=== PATIENT | male | born 1940 | race Caucasian/White ===

== ENCOUNTER 2019-01-21 10:15 | Outpatient (CLI) | payer MEDICARE ==
--- NOTE | 2019-01-21 12:48 | ULT ---
ULTRASOUND ABDOMEN COMPLETE: DATE: 01-21-19 HISTORY: 78-year-old male with ICD-10:R10.9 - unspecified abdominal pain FINDINGS: Liver: Diffusely very coarse and heterogeneous echogenicity and echotexture. Multiple hepatic cysts. The largest in the left lobe is 2.2 x 2.6 x 2.3 cm. Largest in the right lobe is 2 x 1.6 x 2 cm. Gallbladder: Normal wall thickness. No gallstones, sludge, or pericholecystic fluid identified. Common duct: 7 mm Spleen: No splenomegaly. Pancreas: Nonspecific sonographic appearance. Kidneys: No hydronephrosis. 2.5 x 2 x 2 cm round lower pole parenchymal cyst in right kidney. In the left kidney, punctate echogenic foci are visualized, which may or may not represent renal calculi. Abdominal aorta: Mild atherosclerosis. No aneurysm. Inferior vena cava: Poorly visualized. IMPRESSION: 1. Very heterogeneous and coarse echotexture of liver: evidence for nonspecific diffuse, infiltrative hepatocellular disease. Consider further evaluation with multiphase CT of abdomen with and without c ontrast (liver protocol). 2. Multiple hepatic cysts. 3. No sonographic evidence of cholelithiasis or acute cholecystitis. Code T JN R POS: CET
== END 2019-01-21 10:16 | disposition home or self-care (01) ==
LOC: BICULT 10:15
PROVIDERS: ATTEND Family Medicine
DX: R10.9 Unspecified abdominal pain (principal); K76.89 Other specified diseases of liver
CPT/HCPCS: 76700

== ENCOUNTER 2021-12-21 10:31 | Outpatient (CLI) | payer MEDICARE ==
[2021-12-21 11:50] LABS: #Basophils 0.1 10x3/uL (0.0-0.2); #Eosinphils 0.1 10x3/uL (0.0-0.5); #Monocytes 0.5 10x3/uL (0.0-1.1); #Neutrophils 4.9 10x3/uL (1.5-8.4); %Basophils 0.7 % (0.0-2.0); %Eosinophils 1.5 % (0.0-6.0); %Lymphocytes 17.5 % (18.0-47.0); %Monocytes 7.4 % (0.0-10.0); %Neutrophils 72.5 % (40.0-75.0); Hemoglobin 14.7 g/dL (13.5-17.5); Mean Corpuscular HGB CONC 31.8 g/dL (32.0-36.0); Mean Corpuscular Hemoglobin 28.7 pg (27.0-33.0); Mean Corpuscular Volume 90.2 fl (81.2-95.1); Platelet Count 122 10x3/uL (150-450); RBC Distribution Width 18.6 % (11.5-14.5); Red Blood Cell (RBC) Count 5.12 10x6/uL (4.32-5.72); White Blood Cell (WBC) Count 6.8 10x3/uL (3.5-10.5)
[2021-12-21 12:03] LABS: INR-International Normal Ratio 1.1; PTT 28.5 sec (22.0-33.0)
[2021-12-21 12:08] LABS: Anion Gap 16 mmol/L (10-20); BUN (Urea Nitrogen) 30 mg/dL (8.4-25.7); Calc. Creatinine Clearance 0 mL/min (70-130); Calcium 9.1 mg/dL (7.8-10.44); Carbon Dioxide 30 mmol/L (23-31); Chloride 105 mmol/L (98-107); Estimated GFR 58; Glucose 110 mg/dL (83-110); Potassium 4.5 mmol/L (3.5-5.1); Sodium 146 mmol/L (136-145)
== END 2021-12-21 10:32 | disposition home or self-care (01) ==
LOC: LABBT 10:31
PROVIDERS: ATTEND Psychiatry & Neurology Neurology
DX: Z01.818 Encounter for other preprocedural examination (principal); I48.0 Paroxysmal atrial fibrillation; Z20.822 Contact with and (suspected) exposure to COVID-19
CPT/HCPCS: 80048; 85025; 85610; 85730; 87811; 93005; 93010

== ENCOUNTER 2021-12-26 08:51 | Day surgery (SDC) | payer MEDICARE ==
[2021-12-21 13:54] VITALS: BMI 22.7
[2021-12-26] MEDS ORDERED: PROPOFOL 20 ML ONE (13:03)
[2021-12-26] MEDS ORDERED: Ketamine 50 MG/ML (10ML VIAL) ONE (13:03)
== END 2021-12-26 15:41 | disposition home or self-care (01) ==
LOC: SDC 08:51
PROVIDERS: ATTEND Internal Medicine Cardiovascular Disease
PROC: B246ZZ4 Ultrasonography of Right and Left Heart, Transesophageal (ICD-10-PCS; principal; 2021-12-26)
PROC: 5A2204Z Restoration of Cardiac Rhythm, Single (ICD-10-PCS; 2021-12-26)
DX: I48.0 Paroxysmal atrial fibrillation (principal); I42.9 Cardiomyopathy, unspecified; I08.3 Combined rheumatic disorders of mitral, aortic and tricuspid valves; I11.9 Hypertensive heart disease without heart failure; I70.0 Atherosclerosis of aorta; C61 Malignant neoplasm of prostate; Z79.01 Long term (current) use of anticoagulants; Z79.899 Other long term (current) drug therapy; Z86.711 Personal history of pulmonary embolism
CPT/HCPCS: 92960; 93005; 93010; 93312; J2704

== ENCOUNTER 2023-05-31 09:59 | Inpatient (IN) | payer OTHER ==
[2023-05-31 10:39] LABS: #Monocytes 0.8 thou/uL (0.11-0.59); #Neutrophils 13.7 thou/uL (1.40-6.50); %Basophils 0.1 % (0.0-1.0); %Lymphocytes 3.7 % (21.0-51.0); %Monocytes 5.3 % (0.0-10.0); %Neutrophils 90.5 % (42.0-75.0); Hematocrit 36.3 % (42.0-52.0); Hemoglobin 12.1 g/dL (14.0-18.0); Mean Corpuscular HGB CONC 33.3 g/dL (32.0-36.0); Mean Corpuscular Hemoglobin 31.4 pg (27.0-31.0); Mean Corpuscular Volume 94.3 fl (78.0-98.0); Mean Platelet Volume 11.9 fL (7.4-10.4); Platelet Count 157 10x3/uL (130-400); Red Blood Cell (RBC) Count 3.85 mill/uL (4.70-6.10); White Blood Cell (WBC) Count 15.2 10x3/uL (4.8-10.8)
[2023-05-31 11:03] LABS: ALT (SGPT) 11 U/L (8-55); AST (SGOT) 17 U/L (5-34); Albumin 3.4 g/dL (3.4-4.8); Alkaline Phosphatase 69 U/L (40-110); Anion Gap 15 mmol/L (10-20); BUN (Urea Nitrogen) 31 mg/dL (8.4-25.7); Bilirubin, Total 0.6 mg/dL (0.2-1.2); CK (CPK) 299 U/L (30-200); Calc. Creatinine Clearance 0 mL/min (70-130); Calcium 8.9 mg/dL (7.8-10.44); Carbon Dioxide 21 mmol/L (23-31); Chloride 106 mmol/L (98-107); Estimated GFR 42; Globulin 2.8 g/dL (2.4-3.5); Glucose 117 mg/dL (83-110); Potassium 3.7 mmol/L (3.5-5.1); Protein, Total 6.2 g/dL (5.8-8.1); Sodium 138 mmol/L (136-145)
[2023-05-31 11:17] LABS: Troponin I 0.025 ng/mL (< 0.028)
[2023-05-31 13:41] LABS: Bacteria/HPF None Seen HPF (None Seen); Bilirubin Negative (Negative); Blood, Urine 1+ (Negative); CAUTI Indications for Culture Dysuria,urgency,freq; Calcium Oxalate Crystals Rare HPF (None Seen); Clarity Clear (Clear); Glucose, Urine (Dipstick) Normal (Negative); Ketone, Urine Negative (Negative); Leukocyte Negative Leu/uL (Negative); Mucous/LPF 1+ LPF (<2+); Nitrite Negative (Negative); Protein, Urine (Dipstick) 30 mg/dL (Neg-Trace); Specific Gravity, Urine 1.006 (1.002-1.036); Squamous Epithelial 0-3 HPF (0-3); Urobilinogen Normal mg/dL (Less than 2); WBC/HPF 0-3 HPF (0-3); pH, Urine 5.5 (5.0-9.0)
[2023-05-31 13:43] LABS: Urine Culture Reflex No No
[2023-05-31 15:25] LABS: SARS-CoV-2 NAA Rapid Test Not Detected (NotDetected)
[2023-05-31] MEDS ORDERED: Acetaminophen 325 MG TAB PO PRN (18:23)
[2023-05-31] MEDS ORDERED: Bisacodyl 5 MG TAB PO PRN (18:23)
[2023-05-31] MEDS: Dronedarone HCl 400 MG TAB PO SCH (18:34)
[2023-05-31] MEDS: Sodium Chloride 0.9% 1,000 ML IV SCH (18:34)
[2023-05-31 19:02] LABS: Campy jejuni + coli by PCR POSITIVE (Negative); STEC Shiga Toxin 1+2 Negative (Negative); Salmonella spp. by PCR Negative (Negative); Shigella spp + EIEC by PCR Negative (Negative)
[2023-05-31] MEDS: Apixaban 2.5 MG TAB PO SCH (22:12)
[2023-06-01] MEDS: Apixaban 2.5 MG TAB PO SCH (08:14)
[2023-06-01] MEDS: Sodium Chloride 0.9% 1,000 ML IV SCH (08:14)
[2023-06-01] MEDS: Vit A,C & E/Lutein/Minerals Tablet PO SCH (08:14)
[2023-06-01] MEDS: Tamsulosin HCl 0.4 MG CAP PO SCH (08:14)
[2023-06-01] MEDS: Dronedarone HCl 400 MG TAB PO SCH ×2 (08:14→16:16)
[2023-06-01 09:56] LABS: Hematocrit 31.9 % (42.0-52.0); Hemoglobin 10.4 g/dL (14.0-18.0); Manual Diff?? YES; Mean Corpuscular HGB CONC 32.6 g/dL (32.0-36.0); Mean Corpuscular Volume 94.9 fl (78.0-98.0); Mean Platelet Volume 11.9 fL (7.4-10.4); Platelet Count 142 10x3/uL (130-400); RBC Distribution Width 14.1 % (11.5-14.5); Red Blood Cell (RBC) Count 3.36 mill/uL (4.70-6.10); White Blood Cell (WBC) Count 7.7 10x3/uL (4.8-10.8)
[2023-06-01 10:17] LABS: Delete Auto Diff?? YES
[2023-06-01 10:23] LABS: Anion Gap 12 mmol/L (10-20); BUN (Urea Nitrogen) 27 mg/dL (8.4-25.7); CK (CPK) 574 U/L (30-200); Calc. Creatinine Clearance 46 mL/min (70-130); Calcium 8.3 mg/dL (7.8-10.44); Carbon Dioxide 22 mmol/L (23-31); Chloride 108 mmol/L (98-107); Estimated GFR 62; Glucose 115 mg/dL (83-110); Potassium 3.7 mmol/L (3.5-5.1); Sodium 138 mmol/L (136-145)
[2023-06-01 11:07] LABS: Band 16 % (5-11); Burr Cells SLIGHT = 2-5 cells HPF (0-1); CellaVision Operator ID LAB.NR; Eosinophils 2 % (0-10); Hypochromia SLIGHT = 6-15 cells HPF (0-5); Lymphocytes 12 % (21-51); Monocytes 7 % (0-10); Neutrophil 63 % (42-75); Platelet Adequacy Comment Platelets Normal; Polychromasia SLIGHT = 2-3 cells HPF (0-2); Spherocytes SLIGHT = 1-5 cells HPF (None Seen); Total Cell Count 100; Vacuoles SLIGHT
[2023-06-01] MEDS: Azithromycin 250 MG TAB PO SCH (11:26)
[2023-06-01] MEDS ORDERED: NIFEdipine XL 30 MG ER.TAB PO PRN (11:50)
[2023-06-01] MEDS: Apixaban 5 MG TAB PO SCH (21:25)
[2023-06-02] MEDS: Sodium Chloride 0.9% 1,000 ML IV SCH ×2 (00:31→09:40)
[2023-06-02 00:37] VITALS: BMI 23.5
[2023-06-02 05:11] LABS: #Eosinphils 0.3 thou/uL (0.0-0.7); #Monocytes 1.1 thou/uL (0.11-0.59); #Neutrophils 3.8 thou/uL (1.40-6.50); %Basophils 0.6 % (0.0-1.0); %Eosinophils 3.7 % (0.0-10.0); %Lymphocytes 28.5 % (21.0-51.0); %Monocytes 14.8 % (0.0-10.0); Hematocrit 31.2 % (42.0-52.0); Hemoglobin 10.3 g/dL (14.0-18.0); Mean Corpuscular Hemoglobin 31.1 pg (27.0-31.0); Mean Corpuscular Volume 94.3 fl (78.0-98.0); Mean Platelet Volume 12.6 fL (7.4-10.4); Platelet Count 145 10x3/uL (130-400); RBC Distribution Width 14.2 % (11.5-14.5); Red Blood Cell (RBC) Count 3.31 mill/uL (4.70-6.10); White Blood Cell (WBC) Count 7.2 10x3/uL (4.8-10.8)
[2023-06-02 05:46] LABS: Anion Gap 11 mmol/L (10-20); BUN (Urea Nitrogen) 25 mg/dL (8.4-25.7); CK (CPK) 356 U/L (30-200); Calc. Creatinine Clearance 44 mL/min (70-130); Calcium 8.4 mg/dL (7.8-10.44); Carbon Dioxide 21 mmol/L (23-31); Chloride 113 mmol/L (98-107); Estimated GFR 60; Glucose 85 mg/dL (83-110); Potassium 3.7 mmol/L (3.5-5.1); Sodium 141 mmol/L (136-145)
[2023-06-02] MEDS: Tamsulosin HCl 0.4 MG CAP PO SCH (09:40)
[2023-06-02] MEDS: Vit A,C & E/Lutein/Minerals Tablet PO SCH (09:40)
[2023-06-02] MEDS: Apixaban 5 MG TAB PO SCH (09:40)
[2023-06-02] MEDS: Dronedarone HCl 400 MG TAB PO SCH (09:40)
[2023-06-02] MEDS: Azithromycin 250 MG TAB PO SCH (12:50)
[2023-06-02 13:47] VITALS: BP 151/96; TEMP 98
== END 2023-06-02 15:20 | disposition home or self-care (01) | DRG 372 ==
LOC: ERS 09:59 → 2NO 15:47 → INTOOBSV 15:47 → OBSVTOIN 06-02 14:50
PROVIDERS: ADMIT Internal Medicine; ATTEND Internal Medicine
DX: A04.5 Campylobacter enteritis (principal); M62.82 Rhabdomyolysis; N17.9 Acute kidney failure, unspecified; E86.0 Dehydration; E78.5 Hyperlipidemia, unspecified; I48.91 Unspecified atrial fibrillation; N40.0 Benign prostatic hyperplasia without lower urinary tract symptoms; N18.2 Chronic kidney disease, stage 2 (mild); I12.9 Hypertensive chronic kidney disease with stage 1 through stage 4 chronic kidney disease, or unspecified chronic kidney disease; Z98.890 Other specified postprocedural states; Z79.899 Other long term (current) drug therapy; Z11.52 Encounter for screening for COVID-19
CPT/HCPCS: 36415; 70450; 71045; 72125; 80048; 80053; 81001; 82550; 83605; 84484; 85025; 87324; 87449; 87505; 93005; G0378; J7050